=== PATIENT | male | born 1960 | race Caucasian/White ===

== ENCOUNTER 2017-08-06 11:07 | Emergency (ER) | payer OTHER ==
--- NOTE | 2017-08-06 12:00 | EDM.PDOC ---
ED HPI GENERAL MEDICAL PROBLEM - General Chief Complaint: Back Pain or Injury Stated Complaint: INJURED BACK AT WORK Time Seen by Provider: 08/06/17 11:59 Source of Information: Reports: Patient History Limitations: Reports: No Limitations - History of Present Illness INITIAL COMMENTS - FREE TEXT/NARRATIVE: Lee presents today with complaints of low back pain with radiation to right buttock after trying to lift a pellet lift out from under panels at [employer]. He denies change in bowel or bladder function and sensation. He also complains of neck pain with numbness tingling to left shoulder that has been present for several weeks. Onset: Today, Sudden Duration: Minutes: Quality: Reports: Ache, Burning Improves with: Reports: Rest Worsens with: Reports: Movement Context: Reports: Lifting right lower back Pain Score (Numeric/FACES): 7 - Related Data Allergies Allergy/AdvReac Type Severity Reaction Status Date / Time No Known Allergies Allergy Verified 08/06/17 11:43 Home Meds: Home Meds Albuterol [Ventolin HFA] 2 inh INH ASDIRECTED PRN 08/06/17 [History] Budesonide/Formoterol [Symbicort 80-4.5 MCG] 1 inh INH BID 08/06/17 [History] FLUoxetine [PROzac] 20 mg PO DAILY 08/06/17 [History] Simvastatin [Zocor] 40 mg PO BEDTIME 08/06/17 [History] Past Medical History Cardiovascular History: Reports: High Cholesterol Respiratory History: Reports: Asthma Psychiatric History: Reports: Depression - Past Surgical History Musculoskeletal Surgical History: Reports: Other (See Below) Other Musculoskeletal Surgeries/Procedures:: neck surgery Social & Family History - Tobacco Use Smoking Status *Q: Current Every Day Smoker Years of Tobacco use: 35 Packs/Tins Daily: 0.5 - Recreational Drug Use Recreational Drug Use: No ED ROS GENERAL - Review of Systems Review Of Systems: See Below Constitutional: Denies: Fever, Chills HEENT: Reports: No Symptoms Respiratory: Denies: Shortness of Breath, Wheezing, Cough, Sputum Cardiovascular: Denies: Chest Pain, Blood Pressure Problem, Dyspnea on Exertion , Edema, Lightheadedness, Palpitations, PND, Syncope Endocrine: Reports: No Symptoms GI/Abdominal: Reports: No Symptoms : Denies: Flank Pain, Frequency, Hematuria, Incontinence, Pain Musculoskeletal: Reports: Neck Pain, Muscle Stiffness, Other (Low back pain) Skin: Reports: No Symptoms Neurological: Denies: Confusion, Headache, Numbness, Paresthesia, Tingling, Difficulty Walking, Weakness, Change in Speech, Gait Disturbance Psychiatric: Reports: No Symptoms Hematologic/Lymphatic: Reports: No Symptoms Immunologic: Reports: No Symptoms ED EXAM,LOWER BACK PAIN/INJURY - Physical Exam Exam: See Below Exam Limited By: No Limitations General Appearance: Alert, WD/WN, No Apparent Distress, Moderate Distress Eye Exam: Bilateral Eye: EOMI, Normal Fundi, Normal Inspection, PERRL Ears: Normal External Exam, Normal Canal, Hearing Grossly Normal, Normal TMs Nose: Normal Inspection, Normal Mucosa, No Blood Throat/Mouth: Normal Inspection, Normal Lips, Normal Teeth, Normal Gums, Normal Oropharynx, Normal Voice Head: Atraumatic, Normocephalic Neck: Normal Inspection, Supple, Non-Tender, Full Range of Motion Respiratory/Chest: No Respiratory Distress, Lungs Clear, Normal Breath Sounds, No Accessory Muscle Use, Chest Non-Tender Cardiovascular: Normal Peripheral Pulses, Regular Rate, Rhythm, No Edema, No Gallop, No Murmur, No Rub Rectal (Males) Exam: Normal Exam Back Exam: Normal Inspection, Full Range of Motion, Decreased Range of Motion, Muscle Spasm, Other (Decreased ROM noted to right leg, positive straight leg raise. ). No: CVA Tenderness (R), CVA Tenderness (L), Paraspinal Tenderness, Vertebral Tenderness Extremities: Normal Inspection, Normal Range of Motion, Non-Tender, No Pedal Edema, Normal Capillary Refill Neurological: Alert, Normal Mood/Affect, Normal Dorsiflexion, CN II-XII Intact, Normal Plantar Flexion, Normal Reflexes, No Motor/Sensory Deficits, Oriented x 3 DTR - Lower Extremities: 2+: Knee (R), Knee (L) Psychiatric: Normal Affect, Normal Mood Skin Exam: Warm, Dry, Intact, Normal Color, No Rash Lymphatic: No Adenopathy Course - Vital Signs Last Recorded V/S: Last Vital Signs Temp 36 C 08/06/17 11:46 Pulse 81 08/06/17 11:46 Resp 12 08/06/17 11:46 BP 121/70 08/06/17 11:46 Pulse Ox 96 08/06/17 11:46 - Orders/Labs/Meds Meds: Medications Discontinued Medications Generic Name Dose Route Start Last Admin Trade Name Freq PRN Reason Stop Dose Admin Ketorolac Tromethamine 60 mg 08/06/17 12:14 08/06/17 12:27 Toradol IM 08/06/17 12:15 60 mg ONETIME ONE Administration - Radiology Interpretation Free Text/Narrative:: X-rays reviewed, wet read, no acute findings. Departure - Departure Time of Disposition: 13:16 Disposition: Home, Self-Care 01 Condition: Good Clinical Impression: Lumbar back sprain - Discharge Information Instructions: Back Injury Prevention, [id number], Muscle Strain, [id number] , Back Pain, Adult, [id number] Referrals: PCP,None [Primary Care Provider] - Forms: ED Department Discharge Additional Instructions: You have suffered from a lumbar back sprain. Take ibuprofen 800mg by mouth three times a day with for for pain. You can also take acetaminophen 1000mg by mouth three times a day as needed for pain. Take cyclobenzaprine 10mg by mouth up to three times as needed for muscle relaxant Apply diclofenac gel as directed for pain as well as use of lidocaine patch for pain as needed. Establish care with a primary provider and see them within 3 to 7 days. Follow up with primary care provider for return to work function and ability, further need for pain management and any physical therapy referral. Return for worsening, issues or concerns. - Assessment/Plan Assessment:: lumbar strain Plan: You have suffered from a lumbar back sprain. Take ibuprofen 800mg by mouth three times a day with for for pain. You can also take acetaminophen 1000mg by mouth three times a day as needed for pain. Take cyclobenzaprine 10mg by mouth up to three times as needed for muscle relaxant Apply diclofenac gel as directed for pain as well as use of lidocaine patch for pain as needed. Establish care with a primary provider and see them within 3 to 7 days. Follow up with primary care provider for return to work function and ability, further need for pain management and any physical therapy referral. Return for worsening, issues or concerns.
[2017-08-06] MEDS ORDERED: Ketorolac 60 MG/2 ML SDV IM ONE (12:14)
--- NOTE | 2017-08-06 12:51 | CR ---
Fusion at C6-7. It is intact. Solid bony fusion at C4-5. No fracture.
--- NOTE | 2017-08-06 12:57 | CR ---
5 lumbar type vertebral bodies. Vertebral body heights are maintained. Disc height loss is mild-moder ate L5-S1. Facet arthropathy most notably L5-S1.
== END 2017-08-06 13:37 | disposition home or self-care (01) ==
LOC: JP.ED 11:07
DX: S33.5XXA Sprain of ligaments of lumbar spine, initial encounter (principal); J45.909 Unspecified asthma, uncomplicated; E78.00 Pure hypercholesterolemia, unspecified; F17.210 Nicotine dependence, cigarettes, uncomplicated; Z79.899 Other long term (current) drug therapy; X50.1XXA Overexertion from prolonged static or awkward postures, initial encounter; Y99.0 Civilian activity done for income or pay
CPT/HCPCS: 72050; 72100; 96372; 99001; 99283; J1885

== ENCOUNTER 2020-08-10 07:02 | Day surgery (SDC) | payer OTHER ==
[~2020-08-10 07:02] MED LIST: Lidocaine 1% with EPINEPHrine 1:100,000 50 ML MDV ONE
[2020-08-10] MEDS ORDERED: fentaNYL 100 MCG/2 ML SDV ONE (07:39)
[2020-08-10] MEDS ORDERED: Midazolam 1 MG/ML 2 ML SDV ONE (07:39)
[2020-08-10] MEDS ORDERED: Propofol 200 MG/20 ML SDV ONE (07:39)
[2020-08-10] MEDS ORDERED: Dextrose 5%-Lactated Ringers 1,000 ML IV SCH (07:45)
[2020-08-10] MEDS ORDERED: Glycopyrrolate 0.2 MG/ML 2 ML SDV IVPUSH ONE (08:15)
--- NOTE | 2020-08-15 11:46 | OR ---
DATE OF PROCEDURE: 08/10/2020 SURGEON: Shyam Kraus MD PREOPERATIVE DIAGNOSIS: Recent history of abdominal pain and diarrhea (diarrhea now absent for several days). POSTOPERATIVE DIAGNOSES: 1. Recent history of abdominal pain and diarrhea (diarrhea now absent for several days). 2. Very minimal duodenitis. 3. Three small (probably hyperplastic) polyps in distal sigmoid colon. OPERATIVE PROCEDURES: 1. Esophagogastroduodenoscopy with antral biopsies for CLOtest (09995). 2. Flexible colonoscopy with: a. Collection of stool for microbiologic workup (76099). b. Polypectomy x3 using standard technique (04066). ANESTHESIA: IV sedation. INDICATION FOR PROCEDURE: A 59-year-old male presenting with history of some upper and mid abdominal pain. Up until recently, he had some frequent loose bowel movements or diarrhea, but now for over a week has not had any of those. The plan is to proceed with an upper and lower endoscopy for diagnostic purposes. Potential risks including bleeding and perforation were discussed and the patient wishes to proceed. DETAILS OF PROCEDURE: The patient was taken to the operating room and placed in a left lateral decubitus position. IV sedation was administered after which the upper GI endoscope was passed orally through the length of the esophagus, into the stomach with retroflexion view of the fundus, thereafter through the pyloric channel and into the junction of the 3rd and 4th portions of the duodenum. The hypopharynx, larynx, upper esophageal sphincter, and esophageal body were all unremarkable. No significant hiatal hernia or inflammation of the esophagogastric junction was identified. There was no upward extension of the gastroesophageal junction mucosal line. Within the stomach, there was a small amount of retained bile with no significant inflammation. Within the duodenum, there was some very minimal patchy redness present, but no other pathology beyond that level. The scope was then withdrawn, biopsy obtained from the antrum and sent for CLOtest for H. pylori. Minimal bleeding from the biopsy sites was seen and the procedure then concluded. Attention was then taken to the colonoscopy. The initial digital rectal exam was unremarkable. The colonoscope was then passed into the rectum with retroflexion revealing uncomplicated hemorrhoidal columns. The scope was then eventually passed to the level of the cecum. The prep was fairly good with only a small amount of liquid stool present. To that level, the patient was noted to have a series of small probable hyperplastic polyps within the distal sigmoid colon and upper rectum. These were removed by snare technique and all sent as a single specimen within a container. At that point, no further problems were noted and the scope withdrawn, and the procedure then concluded. We will await the pathology report, call the patient regarding the timing of the next colonoscopy. If these are adenomatous polyps, then he should have another colonoscopy in roughly 3 years. If these are hyperplastic polyps, the number would indicate recommendation for a repeat colonoscopy in 5 years. Shyam Kraus MD /[id number]
== END 2020-08-10 10:29 | disposition home or self-care (01) ==
LOC: JP.SDS 07:02
PROVIDERS: ATTEND Surgery
DX: Z12.11 Encounter for screening for malignant neoplasm of colon (principal); K63.5 Polyp of colon; R19.7 Diarrhea, unspecified; K31.89 Other diseases of stomach and duodenum; K29.80 Duodenitis without bleeding; B96.81 Helicobacter pylori [H. pylori] as the cause of diseases classified elsewhere; J44.9 Chronic obstructive pulmonary disease, unspecified; F17.210 Nicotine dependence, cigarettes, uncomplicated; E66.9 Obesity, unspecified; F41.9 Anxiety disorder, unspecified; F32.9 Major depressive disorder, single episode, unspecified; Z68.27 Body mass index [BMI] 27.0-27.9, adult
CPT/HCPCS: 43239; 45385; 87046; 87081; 87177; 87209; 87493; 87899; 89055; J2250; J2704; J3010; J3490; J7121; 88305

== ENCOUNTER 2021-09-26 17:19 | Emergency (ER) | payer OTHER ==
--- NOTE | 2021-09-26 17:39 | EDM.PDOC ---
<DanettemontseRomario Kelechi - Last Filed: 09/26/21 17:48> ED HPI GENERAL MEDICAL PROBLEM - General Chief Complaint: Chest Pain Stated Complaint: ANXIETY AND CHEST/LOWER BACK PAIN Time Seen by Provider: 09/26/21 17:37 Source of Information: Reports: Patient, Family, Old Records, RN History Limitations: Reports: No Limitations - History of Present Illness INITIAL COMMENTS - FREE TEXT/NARRATIVE: 60 yo male presents with a few days of rapid HR and today a flushing feeling in his chest that comes and goes(does not have it now). He drinks fairly heavily and has drank more recently. He smokes at least a ppd for most of his adult life. He has asthma, but his breathing is pretty much at his baseline. He is concerned about a possible recent Covid exposure. He is here with his of 21 yrs. He has been retired for almost 2 yrs. He had some recent ankle edema, but not now. Onset: Gradual (began with just rapid HR) Onset Date: 09/22/21 Duration: Day(s):, Getting Worse Location: Reports: Chest Quality: Reports: Other (flush) Severity: Moderate (when he has it) Improves with: Reports: Other (unsure) Worsens with: Reports: Other (unsure) Context: Reports: Other (See HPI) Associated Symptoms: Reports: Chest Pain (flushing). Denies: Cough, Diaphoresis, Fever/Chills, Nausea/Vomiting, Shortness of Breath Treatments HEAD OF MATHEMATICS: Reports: Other (see below) (none) - Related Data Allergies Allergy/AdvReac Type Severity Reaction Status Date / Time No Known Allergies Allergy Verified 09/26/21 17:33 Home Meds: Home Meds Albuterol [Ventolin HFA] 1 - 2 puff INH Q4H PRN 08/06/17 [History] Budesonide/Formoterol [Symbicort 80-4.5 MCG] 1 inh INH BID 08/06/17 [History] FLUoxetine [PROzac] 20 mg PO DAILY 08/06/17 [History] atorvaSTATin [Lipitor] 80 mg PO BEDTIME 02/04/20 [History] Pantoprazole [ProTONIX] 40 mg PO DAILY #14 tab.cr 09/26/21 [Rx] Past Medical History HEENT History: Reports: Impaired Vision, Other (See Below) Other HEENT History: wears glasses Respiratory History: Reports: Asthma, Bronchitis, Recurrent, Sleep Apnea Psychiatric History: Reports: Depression - Infectious Disease History Infectious Disease History: Reports: Chicken Pox, Shingles - Past Surgical History GI Surgical History: Reports: Colonoscopy Neurological Surgical History: Reports: C-Spine, Discectomy, Lumbar Spine, Spinal Fusion Social & Family History - Tobacco Use Tobacco Use Status *Q: Heavy Tobacco User Years of Tobacco use: 42 Packs/Tins Daily: 1.5 - Caffeine Use Caffeine Use: Reports: Soda - Alcohol Use Days Per Week of Alcohol Use: 3 Number of Drinks Per Day: 5 Total Drinks Per Week: 15 - Recreational Drug Use Recreational Drug Use: No ED ROS GENERAL - Review of Systems Review Of Systems: See Below Constitutional: Reports: No Symptoms HEENT: Reports: No Symptoms Respiratory: Reports: Wheezing (not more than usual) Cardiovascular: Reports: Chest Pain (intermittent chest "flushing") GI/Abdominal: Reports: No Symptoms : Reports: No Symptoms Musculoskeletal: Reports: No Symptoms Skin: Reports: No Symptoms Neurological: Reports: No Symptoms ED EXAM, GENERAL - Physical Exam Exam: See Below Exam Limited By: No Limitations General Appearance: Alert, WD/WN, No Apparent Distress Eye Exam: Bilateral Eye: Normal Inspection Ears: Normal External Exam, Normal Canal, Hearing Grossly Normal Ear Exam: Bilateral Ear: Auricle Normal, Canal Normal Nose: Normal Inspection, No Blood Throat/Mouth: Normal Inspection, Normal Lips, Normal Oropharynx, Normal Voice, No Airway Compromise Head: Atraumatic, Normocephalic Neck: Normal Inspection Respiratory/Chest: No Respiratory Distress, No Accessory Muscle Use, Chest Non- Tender, Decreased Breath Sounds (slightly decreased), Rales (rare), Wheezing (faint). No: Lungs Clear, Normal Breath Sounds, Rhonchi Cardiovascular: Regular Rate, Rhythm, No Edema, Tachycardia GI/Abdominal: Normal Bowel Sounds, Soft, Non-Tender, No Distention. No: Distended, Tender Back Exam: Normal Inspection. No: CVA Tenderness (R), CVA Tenderness (L) Extremities: Normal Inspection, Normal Range of Motion, Non-Tender, No Pedal Edema. No: Pedal Edema, Spring's Sign Neurological: Alert, Oriented, CN II-XII Intact, Normal Cognition, No Motor/Sensory Deficits Psychiatric: Normal Affect, Normal Mood Skin Exam: Warm, Dry, Intact, Normal Color, No Rash #1 Interpretation EKG Date: 09/26/21 Time: 17:30 Rhythm: NSR Rate (Beats/Min): 114 [place]: Normal P-Wave: Present QRS: Other (non-specific interventricular conduction delay.) ST-T: Normal QT: Normal Comparison: NA - No Prior EKG Departure - Departure Disposition: Home, Self-Care 01 Clinical Impression: Gastroesophageal reflux disease with esophagitis Qualifiers: Esophagitis bleeding: without hemorrhage Qualified Code(s): K21.00 - Gastro- esophageal reflux disease with esophagitis, without bleeding Instructions: Gastroesophageal Reflux Disease, Adult, [id number] Referrals: PCP,None [Primary Care Provider] - Forms: ED Department Discharge Care Plan Goals: Your work-up is shown that you did have a previous pulmonary emboli to the right lower lobe, but no evidence for new pulmonary embolism. It does not look like this previous embolism was anytime recent. Your symptoms are most likely consistent with a gastroesophageal reflux disease causing esophageal spasm. For this reason we are going to put you on pantoprazole 1 tablet daily for the next 14 days to heal the stomach and esophagus. Alcohol can be a major stimulus for reflux symptoms so I would recommend monitoring your intake. Sepsis Event Note (ED) - Evaluation Sepsis Screening Result: No Definite Risk <Deandre Brenner - Last Filed: 09/26/21 21:44> Course - Vital Signs Last Recorded V/S: Last Vital Signs Temp 36.4 C 09/26/21 17:31 Pulse 109 H 09/26/21 19:39 Resp 20 09/26/21 19:39 BP 156/92 H 09/26/21 19:39 Pulse Ox 90 L 09/26/21 19:39 - Orders/Labs/Meds Orders: Active Orders 24 hr Category Date Time Status Cardiac Monitoring [RC] .As Directed Care 09/26/21 17:37 Active Iopamidol [Isovue-370 (76%)] Med 09/26/21 19:45 Active 100 ml IV . DIRECTED Sodium Chloride 0.9% [Normal Saline] 100 ml Med 09/26/21 19:45 Active IV ASDIRECTED Sodium Chloride 0.9% [Saline Flush] Med 09/26/21 17:42 Active 10 ml FLUSH ASDIRECTED PRN Saline Lock Insert [OM.PC] Routine Oth 09/26/21 17:42 Ordered EKG 12 Lead [EK] Routine Ther 09/26/21 17:36 Ordered Medication Orders Sodium Chloride (Normal Saline) 100 mls @ 3 mls/sec IV ASDIRECTED BRIAN Last Admin: 09/26/21 20:07 Dose: 3 mls/sec Documented by: RADHA Iopamidol (Iopamidol 755 Mg/Ml 100 Ml Bottle) 100 ml IV . DIRECTED BRIAN Last Admin: 09/26/21 20:07 Dose: 100 ml Documented by: RADHA Sodium Chloride (Sodium Chloride 0.9% 10 Ml Syringe) 10 ml FLUSH ASDIRECTED PRN PRN Reason: Keep Vein Open Last Admin: 09/26/21 20:07 Dose: 10 ml Documented by: Admin: 09/26/21 18:02 Dose: 10 ml Documented by: RICHARD Labs: Laboratory Tests 09/26/21 09/26/21 09/26/21 Range/Units 17:53 17:55 17:55 WBC 12.2 H Cancelled (4.5-11.0) K/uL RBC 4.60 Cancelled (4.30-5.90) M/uL Hgb 14.6 Cancelled (12.0-15.0) g/dL Hct 42.6 Cancelled (40.0-54.0) % MCV 93 Cancelled (80-98) fL MCH 32 H Cancelled (27-31) pg MCHC 34 Cancelled (32-36) % Plt Count 341 Cancelled (150-400) K/uL Neut % (Auto) 70.0 H (36-66) % Lymph % (Auto) 19.9 L (24-44) % [place] % (Auto) 8.8 H (2-6) % Eos % (Auto) 0.8 L (2-4) % Baso % (Auto) 0.5 (0-1) % D-Dimer, Quantitative (0.0-500.0) ng/mL Sodium (140-148) mmol/L Potassium (3.6-5.2) mmol/L Chloride (100-108) mmol/L Carbon Dioxide (21-32) mmol/L Anion Gap (5.0-14.0) mmol/L BUN (7-18) mg/dL Creatinine (0.8-1.3) mg/dL Est Cr Clr Drug Dosing mL/min Estimated GFR (MDRD) (>60) Glucose (74-106) mg/dL Calcium (8.5-10.1) mg/dL Total Bilirubin (0.2-1.0) mg/dL AST (15-37) U/L ALT (12-78) U/L Alkaline Phosphatase (46-116) U/L Troponin I < 0.017 (0.000-0.056) ng/mL Total Protein (6.4-8.2) g/dL Albumin (3.4-5.0) g/dL Globulin (2.3-3.5) g/dL Albumin/Globulin Ratio (1.2-2.2) TSH, Ultra Sensitive 1.770 (0.358-3.740) uIU/mL Influenza Type A RNA (NEGATIVE) RSV RNA (INAAT) (NEGATIVE) Influenza Type B RNA (NEGATIVE) SARS-CoV-2 RNA (CLARE) (NEGATIVE) 09/26/21 09/26/21 09/26/21 Range/Units 17:55 17:55 19:15 WBC (4.5-11.0) K/uL RBC (4.30-5.90) M/uL Hgb (12.0-15.0) g/dL Hct (40.0-54.0) % MCV (80-98) fL MCH (27-31) pg MCHC (32-36) % Plt Count (150-400) K/uL Neut % (Auto) (36-66) % Lymph % (Auto) (24-44) % [place] % (Auto) (2-6) % Eos % (Auto) (2-4) % Baso % (Auto) (0-1) % D-Dimer, Quantitative 796.57 H (0.0-500.0) ng/mL Sodium 139 L (140-148) mmol/L Potassium 3.7 (3.6-5.2) mmol/L Chloride 100 (100-108) mmol/L Carbon Dioxide 28 (21-32) mmol/L Anion Gap 14.7 H (5.0-14.0) mmol/L BUN 17 (7-18) mg/dL Creatinine 1.0 (0.8-1.3) mg/dL Est Cr Clr Drug Dosing 81.58 mL/min Estimated GFR (MDRD) > 60 (>60) Glucose 87 (74-106) mg/dL Calcium 8.5 (8.5-10.1) mg/dL Total Bilirubin 0.6 (0.2-1.0) mg/dL AST 29 (15-37) U/L ALT 28 (12-78) U/L Alkaline Phosphatase 102 (46-116) U/L Troponin I (0.000-0.056) ng/mL Total Protein 6.7 (6.4-8.2) g/dL Albumin 3.7 (3.4-5.0) g/dL Globulin 3.0 (2.3-3.5) g/dL Albumin/Globulin Ratio 1.2 (1.2-2.2) TSH, Ultra Sensitive (0.358-3.740) uIU/mL Influenza Type A RNA Negative (NEGATIVE) RSV RNA (INAAT) Negative (NEGATIVE) Influenza Type B RNA Negative (NEGATIVE) SARS-CoV-2 RNA (CLARE) Negative (NEGATIVE) Meds: Medications Generic Name Dose Route Start Last Admin Trade Name Freq PRN Reason Stop Dose Admin Sodium Chloride 100 mls @ 3 mls/sec 09/26/21 19:45 09/26/21 20:07 Normal Saline IV 3 mls/sec ASDIRECTED BRIAN Administration Iopamidol 100 ml 09/26/21 19:45 09/26/21 20:07 Iopamidol 755 Mg/Ml 100 Ml Bottle IV 100 ml . DIRECTED BRIAN Administration Sodium Chloride 10 ml 09/26/21 17:42 09/26/21 20:07 Sodium Chloride 0.9% 10 Ml Syringe FLUSH 10 ml ASDIRECTED PRN Administration Keep Vein Open - Re-Assessments/Exams Free Text/Narrative Re-Assessment/Exam: 09/26/21 18:00 [Dr. Brenner] I am assuming care of the patient from Dr. Erickson at 1800 hrs. At this time we are awaiting the results of his labs. The patient is a 60-year-old who is presenting to the ED with central chest pain. 09/26/21 19:30 the patient's labs have returned showing a mild elevation in his leukocyte count at 12.6. Unfortunately there is no differential that was done. He has a hemoglobin of 14.6 with a hematocrit of 43.2 and a platelet count of 330,000. His basic metabolic profile is unremarkable. His D-dimer comes back significantly elevated at 796.5, his troponin is less than 0.017 and his TSH is normal at 1.77. The elevated D-dimer, we waited for the Covid test return which was negative for Covid, RSV, and influenza a and B. We will proceed with a CT angiogram of the chest to rule out a pulmonary emboli. 09/26/21 21:40 I reviewed the images of the CT chest angiogram as well as the report. The report is as follows: FINDINGS: Heart and vasculature: No cardiomegaly, no pericardial effusion. Atherosclerotic coronary artery calcifications. No evidence of acute pulmonary embolus. 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 Lungs and pleura: Moderate emphysematous changes. Residual peribronchial nodularity in the superior segment of the right lower lobe, likely chronic scarring from prior infectious/inflammatory etiology. Stable cystic change with focal scarring in the left upper lobe. No evidence of pulmonary infarct. Thyroid and lower neck: No suspicious thyroid nodule. Mediastinum/mc: No lymphadenopathy. Chest wall: No axillary lymphadenopathy. Upper abdomen: No acute abnormality. Bones: Multilevel degenerative changes of the spine. No suspicious/aggressive focal osseous lesion. IMPRESSION: 1. No evidence of acute pulmonary embolus. 2. 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 3. Moderate emphysematous changes, with multifocal scarring as above. No evidence of pulmonary infarct. Please note that all CT scans at this facility use dose modulation, iterative reconstruction, and/or weight-based dosing when appropriate to reduce radiation dose to as low as reasonably achievable. Dictated by Carmelita Olivo MD @ 09/26/2021 9:38:14 PM The symptoms are likely due to gastroesophageal reflux causing esophageal spasm. We will put the patient on a 2-week course of pantoprazole. This was a printed out prescription he can fill in the morning. Indications return to the ED were discussed he was discharged in satisfactory condition. Departure - Departure Time of Disposition: 21:41 Sepsis Event Note (ED) - Focused Exam Vital Signs: Vital Signs Temp Pulse Resp BP Pulse Ox 09/26/21 19:39 109 H 20 156/92 H 90 L 09/26/21 17:31 36.4 C 114 H 13 168/95 H 94 L - Problem List & Annotations (1) Gastroesophageal reflux disease with esophagitis SNOMED Code(s): 130791219 Code(s): K21.00 - GASTRO-ESOPHAGEAL REFLUX DIS WITH ESOPHAGITIS, WITHOUT BLEED Status: Acute Priority: High Current Visit: Yes Qualifiers: Esophagitis bleeding: without hemorrhage Qualified Code(s): K21.00 - Gastro-esophageal reflux disease with esophagitis, without bleeding - Problem List Review Problem List Initiated/Reviewed/Updated: Yes - My Orders Last 24 Hours: My Active Orders 09/26/21 19:45 Iopamidol [Isovue-370 (76%)] 100 ml IV . DIRECTED Sodium Chloride 0.9% [Normal Saline] 100 ml IV ASDIRECTED - Assessment/Plan Last 24 Hours: My Active Orders 09/26/21 19:45 Iopamidol [Isovue-370 (76%)] 100 ml IV . DIRECTED Sodium Chloride 0.9% [Normal Saline] 100 ml IV ASDIRECTED
[2021-09-26] MEDS: Sodium Chloride 0.9% 10 ML Syringe FLUSH PRN ×2 (18:02→20:07)
[2021-09-26] MEDS ORDERED: Sodium Chloride 0.9% 100 ML IV SCH (19:45)
[2021-09-26] MEDS ORDERED: Iopamidol 755 Mg/ML 100 ML Bottle IV SCH (19:45)
[2021-09-26 19:56] LABS: CORONAVIRUS COVID-19 NAA NEGATIVE (NEGATIVE)
--- NOTE | 2021-09-26 21:39 | CRLCT ---
For Patients: As a result of the Century Cures Act, medical imaging exams and procedure reports are released immediately into your electronic medical record. You may view this report before your referring provider. If you have questions, please contact your health care provider. INDICATION: Chest pain. Elevated D-dimer. TECHNIQUE: CT chest PE was acquired with 100 cc Isovue 370 IV contrast. COMPARISON: CT chest dated 04/10/2019, 01/29/2019. FINDINGS: Heart and vasculature: No cardiomegaly, no pericardial effusion. Atherosclerotic coronary artery calcifications. No evidence of acute pulmonary embolus. 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 Lungs and pleura: Moderate emphysematous changes. Residual peribronchial nodularity in the superior segment of the right lower lobe, likely chronic scarring from prior infectious/inflammatory etiology. Stable cystic change with focal scarring in the left upper lobe. No evidence of pulmonary infarct. Thyroid and lower neck: No suspicious thyroid nodule. Mediastinum/mc: No lymphadenopathy. Chest wall: No axillary lymphadenopathy. Upper abdomen: No acute abnormality. Bones: Multilevel degenerative changes of the spine. No suspicious/aggressive focal osseous lesion. IMPRESSION: 1. No evidence of acute pulmonary embolus. 2. 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 3. Moderate emphysematous changes, with multifocal scarring as above. No evidence of pulmonary infarct. Please note that all CT scans at this facility use dose modulation, iterative reconstruction, and/or weight-based dosing when appropriate to reduce radiation dose to as low as reasonably achievable. Dictated by Carmelita Olivo MD @ 09/26/2021 9:38:14 PM (Electronically Signed)
== END 2021-09-26 21:53 | disposition home or self-care (01) ==
LOC: JP.ED 17:19
DX: K21.00 Gastro-esophageal reflux disease with esophagitis, without bleeding (principal); Z79.899 Other long term (current) drug therapy; Z72.0 Tobacco use; Z20.822 Contact with and (suspected) exposure to COVID-19
CPT/HCPCS: 0241U; 36415; 71275; 80053; 84443; 84484; 85025; 85379; 93005; 99285-25; Q9967

== ENCOUNTER 2024-02-12 08:34 | Inpatient (IN) | payer MEDICARE, BC ==
[2024-02-12] MEDS: Sodium Chloride 0.9% 1,000 ML IV ONE (09:29)
[2024-02-12 09:32] LABS: BICARBONATE,VENOUS 29.5 mmol/L; CARBOXYHEMOGLOBIN 5.4 % (0.0-1.6); O2 SATURATION VENOUS 86.4; OXYHEMOGLOBIN 80.9 %; PH,VENOUS 7.397 (7.350-7.450)
[2024-02-12 09:34] LABS: BASOPHILS ABSOLUTE AUTO 0.03 K/uL (0.00-0.10); BASOPHILS PERCENT AUTO 0.2 % (0.1-1.3); EOSINOPHILS ABSOLUTE AUTO 0.07 K/uL (0.00-0.40); EOSINOPHILS PERCENT AUTO 0.5 % (0.0-5.4); HEMATOCRIT 45.6 % (38.4-49.7); HEMOGLOBIN 15.5 g/dL (12.9-16.9); IMMATURE GRAN ABSOLUTE AUTO 0.05 K/uL (0.00-0.23); IMMATURE GRAN PERCENT AUTO 0.4 % (0.0-0.7); LYMPHOCYTES ABSOLUTE AUTO 1.25 K/uL (0.8-3.3); LYMPHOCYTES PERCENT AUTO 8.8 % (11.4-47.7); MEAN CORPUSCULAR HEMOGLOBIN 31.1 pg (31.6-35.5); MEAN CORPUSCULAR VOLUME 91.4 fL (81.4-99.0); MONOCYTES ABSOLUTE AUTO 1.46 K/uL (0.20-0.90); MONOCYTES PERCENT AUTO 10.3 % (3.3-12.6); NEUTROPHILS ABSOLUTE AUTO 11.31 K/uL (1.0-7.6); NEUTROPHILS PERCENT AUTO 79.8 % (40.0-78.1); PLATELET COUNT,PLT 205 K/uL (130-375); RED BLOOD CELL COUNT 4.99 M/uL (4.14-5.76); WHITE BLOOD CELL COUNT,WBC 14.2 K/uL (3.2-11.0)
[2024-02-12 09:48] LABS: CORONAVIRUS COVID-19 NAA NEGATIVE (NEGATIVE); INFLUENZA A NAA NEGATIVE (NEGATIVE); INFLUENZA B NAA NEGATIVE (NEGATIVE); RESPIRATORY SYNCYTIAL VIR NAA POSITIVE (NEGATIVE)
[2024-02-12] MEDS: Albuterol/Ipratropium 3.0-0.5 MG/3 ML Neb Soln NEB ONE (09:55)
[2024-02-12 10:06] LABS: ALANINE AMINOTRANSFERASE,ALT 29 U/L (12-78); ALBUMIN 3.3 g/dL (3.4-5.0); ALKALINE PHOSPHATASE 106 U/L (46-116); ASPARTATE AMNIOTRANSFERASE,AST 32 U/L (15-37); BILIRUBIN TOTAL 1.1 mg/dL (0.2-1.0); BLOOD UREA NITROGEN,BUN 15 mg/dL (7-18); CALCIUM 8.7 mg/dL (8.5-10.1); CARBON DIOXIDE,CO2 29 mmol/L (21-32); CHLORIDE,CL 97 mmol/L (100-108); CREATININE 1.1 mg/dL (0.8-1.3); EST CRCL DRUG DOSING (CG) 70.76 mL/min; ESTIMATED GFR 75 mL/min (>60); GLUCOSE RANDOM 119 mg/dL (74-106); POTASSIUM,K 4.4 mmol/L (3.6-5.2); PRO B-TYPE NATRIUR PEPT,BNPPRO 318 pg/mL (5-125); PROTEIN TOTAL,TP 7.2 g/dL (6.4-8.2); SODIUM,NA 134 mmol/L (140-148)
[2024-02-12 10:09] LABS: A/G RATIO 0.9 (1.2-2.2); ANION GAP 12.4 mmol/L (5.0-14.0)
[2024-02-12] MEDS: Sodium Chloride 0.9% 10 ML Syringe FLUSH ONE (10:35)
[2024-02-12] MEDS: Sodium Chloride 0.9% 100 ML IV SCH (10:35)
[2024-02-12] MEDS: Iopamidol 755 Mg/ML 100 ML Bottle IV SCH (10:35)
[2024-02-12] MEDS: cefTRIAXone 1 GM in Sodium Chloride 0.9% 50 ML IV ONE (11:54)
[2024-02-12] MEDS ORDERED: Ondansetron 4 MG Tab.DIS PO PRN (14:10)
[2024-02-12] MEDS ORDERED: Albuterol 0.083% 2.5 MG/3 ML Neb Soln NEB PRN (14:10)
[2024-02-12] MEDS ORDERED: Acetaminophen 325 MG Tab PO PRN (14:10)
[2024-02-12] MEDS ORDERED: Benzonatate 100 MG Cap PO PRN (14:10)
[2024-02-12] MEDS ORDERED: Cyclobenzaprine 10 MG Tab PO PRN (14:10)
[2024-02-12] MEDS ORDERED: Ondansetron 4 MG/2 ML SDV IV PRN (14:10)
[2024-02-12] MEDS ORDERED: Sennosides/Docusate Sodium 50-8.6 MG Tab PO PRN (14:10)
[2024-02-12] MEDS ORDERED: Codeine/guaiFENesin 10-100 MG/5 ML Syrup 5 ML Cup PO PRN (14:10)
[2024-02-12] MEDS ORDERED: Magnesium Hydroxide 400 MG/5 ML Susp 30 ML Cup PO PRN (14:10)
[2024-02-12] MEDS: Albuterol/Ipratropium 3.0-0.5 MG/3 ML Neb Soln NEB SCH (15:01)
[2024-02-12] MEDS: methylPREDNISolone Sodium Succinate 125 MG/2 ML SDV IVPUSH ONE (15:41)
[2024-02-12] MEDS: Doxycycline 100 MG Cap PO SCH (15:43)
[2024-02-12 18:41] LABS: APPEARANCE,URINE CLEAR (CLEAR); BILIRUBIN,URINE NEGATIVE (NEGATIVE); COLOR,URINE YELLOW (YELLOW); GLUCOSE,URINE NEGATIVE (NEGATIVE); KETONES,URINE NEGATIVE (NEGATIVE); LEUKOCYTE ESTERASE,URINE NEGATIVE (NEGATIVE); NITRITE,URINE NEGATIVE (NEGATIVE); OCCULT BLOOD,URINE NEGATIVE (NEGATIVE); PH,URINE 5.5 (5.0-8.0); PROTEIN,URINE 30 mg/dL (NEGATIVE); UROBILINOGEN,URINE 0.2 EU/dL (0.2-1.0)
[2024-02-12 18:46] LABS: AMORPHOUS SEDIMENT,URINE NOT SEEN; BACTERIA,URINE FEW; EPITHELIAL CELLS,URINE RARE; MUCUS,URINE FEW; RBC,URINE NOT SEEN (0-5); WBC,URINE 0-5 (0-5)
[2024-02-12] MEDS: Lactobacillus Rhamnosus GG (Probiotic) Cap PO SCH (20:23)
[2024-02-12] MEDS: atorvaSTATin 20 MG Tab PO SCH (20:23)
[2024-02-12] MEDS: Formoterol/Mometasone 100-5 MCG 8.8 GM Inhaler IH SCH (20:23)
[2024-02-12] MEDS: methylPREDNISolone Sodium Succinate 125 MG/2 ML SDV IVPUSH SCH (20:24)
[2024-02-12] MEDS: cefTRIAXone 2 GM in Sodium Chloride 0.9% 50 ML IV SCH (23:35)
[2024-02-13 06:12] LABS: HEMATOCRIT 43.8 % (38.4-49.7); HEMOGLOBIN 14.6 g/dL (12.9-16.9); MEAN CORPUSCULAR HEMOGLOBIN 30.9 pg (31.6-35.5); MEAN CORPUSCULAR HGB CONC 33.3 g/dL (31.6-35.5); MEAN CORPUSCULAR VOLUME 92.8 fL (81.4-99.0); RED BLOOD CELL COUNT 4.72 M/uL (4.14-5.76)
[2024-02-13 06:26] LABS: CALCIUM 8.7 mg/dL (8.5-10.1); CREATININE 1.1 mg/dL (0.8-1.3); EST CRCL DRUG DOSING (CG) 71.01 mL/min; POTASSIUM,K 4.9 mmol/L (3.6-5.2)
[2024-02-13 06:33] LABS: ANION GAP 10.9 mmol/L (5.0-14.0)
[2024-02-13] MEDS: Gabapentin 100 MG Cap PO SCH (08:36)
[2024-02-13] MEDS: predniSONE 20 MG Tab PO SCH (08:37)
[2024-02-13] MEDS ORDERED: FLUoxetine 20 MG Cap PO SCH (09:00)
[2024-02-13] MEDS: Calcium Carbonate 500 MG Tab.Chew PO PRN (18:35)
[2024-02-13] MEDS: FLUoxetine 20 MG Cap PO SCH (21:19)
== END 2024-02-14 10:28 | disposition home or self-care (01) | DRG 193 ==
LOC: JP.ED 08:34 → JP.MS 13:46
PROVIDERS: ADMIT Internal Medicine; ATTEND Internal Medicine
PROC: 4A033R1 Measurement of Arterial Saturation, Peripheral, Percutaneous Approach (ICD-10-PCS; principal; 2024-02-12)
DX: R09.02 Hypoxemia (principal); B97.4 Respiratory syncytial virus as the cause of diseases classified elsewhere; J44.9 Chronic obstructive pulmonary disease, unspecified; J12.1 Respiratory syncytial virus pneumonia; J96.01 Acute respiratory failure with hypoxia; J44.0 Chronic obstructive pulmonary disease with (acute) lower respiratory infection; J44.1 Chronic obstructive pulmonary disease with (acute) exacerbation; G47.30 Sleep apnea, unspecified; F32.A Depression, unspecified; F17.210 Nicotine dependence, cigarettes, uncomplicated; Z86.718 Personal history of other venous thrombosis and embolism; Z79.51 Long term (current) use of inhaled steroids; Z79.899 Other long term (current) drug therapy; Z98.1 Arthrodesis status; Z98.890 Other specified postprocedural states
CPT/HCPCS: 0241U; 36415; 71046; 71275; 80048; 80053; 81001; 82803; 83605; 83735; 83880; 84145; 84484; 85025; 85027; 85379; 86140; 87040; 87070; 87205; 94640; 96361; 96365; 99222; 99232; 99238; 99285; A9270-GY; J0696; J1040; J2930; J3490; J7030; J7512; J7620; Q9967

== ENCOUNTER 2024-03-06 08:26 | Day surgery (SDC) | payer MEDICARE, BC ==
[2024-03-06] MEDS: Sodium Chloride 0.9% 10 ML Syringe FLUSH PRN (08:58)
== END 2024-03-06 10:14 | disposition home or self-care (01) ==
LOC: JP.SDS 08:26
PROVIDERS: ATTEND Ophthalmology
DX: H25.12 Age-related nuclear cataract, left eye (principal); K21.00 Gastro-esophageal reflux disease with esophagitis, without bleeding; J44.1 Chronic obstructive pulmonary disease with (acute) exacerbation; J96.01 Acute respiratory failure with hypoxia; Z79.899 Other long term (current) drug therapy
CPT/HCPCS: 66984; J3490; V2632

== ENCOUNTER 2024-03-20 07:43 | Day surgery (SDC) | payer MEDICARE, BC ==
[2024-03-20] MEDS: Sodium Chloride 0.9% 10 ML Syringe FLUSH PRN (08:14)
== END 2024-03-20 09:20 | disposition home or self-care (01) ==
LOC: JP.SDS 07:43
PROVIDERS: ATTEND Ophthalmology
DX: H26.9 Unspecified cataract (principal); J44.9 Chronic obstructive pulmonary disease, unspecified
CPT/HCPCS: 66984; J3490; V2632

== ENCOUNTER 2024-07-21 19:02 | Inpatient (IN) | payer MEDICARE, BC ==
[2024-07-21 19:52] LABS: BASOPHILS ABSOLUTE AUTO 0.04 K/uL (0.00-0.10); BASOPHILS PERCENT AUTO 0.4 % (0.1-1.3); EOSINOPHILS ABSOLUTE AUTO 0.29 K/uL (0.00-0.40); EOSINOPHILS PERCENT AUTO 3.2 % (0.0-5.4); HEMATOCRIT 45.7 % (38.4-49.7); HEMOGLOBIN 15.4 g/dL (12.9-16.9); IMMATURE GRAN ABSOLUTE AUTO 0.03 K/uL (0.00-0.23); IMMATURE GRAN PERCENT AUTO 0.3 % (0.0-0.7); LYMPHOCYTES ABSOLUTE AUTO 2.35 K/uL (0.8-3.3); LYMPHOCYTES PERCENT AUTO 25.6 % (11.4-47.7); MEAN CORPUSCULAR HEMOGLOBIN 30.9 pg (31.6-35.5); MEAN CORPUSCULAR HGB CONC 33.7 g/dL (31.6-35.5); MEAN CORPUSCULAR VOLUME 91.8 fL (81.4-99.0); MONOCYTES ABSOLUTE AUTO 0.87 K/uL (0.20-0.90); MONOCYTES PERCENT AUTO 9.5 % (3.3-12.6); PLATELET COUNT,PLT 246 K/uL (130-375); RED BLOOD CELL COUNT 4.98 M/uL (4.14-5.76); WHITE BLOOD CELL COUNT,WBC 9.2 K/uL (3.2-11.0)
[2024-07-21] MEDS: Albuterol 0.083% 2.5 MG/3 ML Neb Soln NEB ONE (20:10)
[2024-07-21 20:14] LABS: CALCIUM IONIZED,ISTAT 1.13 mmol/L (1.12-1.32); HCO3 ARTERIAL,ISTAT 28.2 mmol/L (22.0-26.0); HEMATOCRIT,ISTAT 45 % (36-48); PCO2 ARTERIAL,ISTAT 39.3 mmHG (35-45); PH ARTERIAL,ISTAT 7.47 (7.35-7.45); PO2 ARTERIAL,ISTAT 156 mmHg (80-105); POTASSIUM,ISTAT 3.7 mmol/L (3.5-4.9); SODIUM,ISTAT 133 mmol/L (140-148); TCO2 ARTERIAL,ISTAT 29 mmol/L (23-27)
[2024-07-21 20:15] LABS: BASE EXCESS ARTERIAL,ISTAT 4 mmol/L (-2-3); O2 SATURATION ARTERIAL,ISTAT 99 % (95-98)
[2024-07-21] MEDS: Sodium Chloride 0.9% 10 ML Syringe FLUSH PRN (20:15)
[2024-07-21] MEDS: methylPREDNISolone Sodium Succinate 125 MG/2 ML SDV IVPUSH ONE (20:20)
[2024-07-21 20:23] LABS: ALANINE AMINOTRANSFERASE,ALT 24 U/L (12-78); ALBUMIN 3.4 g/dL (3.4-5.0); ALKALINE PHOSPHATASE 97 U/L (46-116); ASPARTATE AMNIOTRANSFERASE,AST 16 U/L (15-37); BILIRUBIN TOTAL 0.5 mg/dL (0.2-1.0); BLOOD UREA NITROGEN,BUN 11 mg/dL (7-18); CALCIUM 9.4 mg/dL (8.5-10.1); CARBON DIOXIDE,CO2 35 mmol/L (21-32); CHLORIDE,CL 101 mmol/L (100-108); CREATININE 1.1 mg/dL (0.8-1.3); EST CRCL DRUG DOSING (CG) 71.31 mL/min; ESTIMATED GFR 75 mL/min (>60); GLUCOSE RANDOM 122 mg/dL (74-106); POTASSIUM,K 4.2 mmol/L (3.6-5.2); PROTEIN TOTAL,TP 6.8 g/dL (6.4-8.2); SODIUM,NA 139 mmol/L (140-148)
[2024-07-21 20:25] LABS: ANION GAP 7.2 mmol/L (5.0-14.0)
[2024-07-21] MEDS: Albuterol/Ipratropium 3.0-0.5 MG/3 ML Neb Soln NEB ONE (22:09)
[2024-07-22] MEDS ORDERED: Ondansetron 4 MG/2 ML SDV IV PRN (00:08)
[2024-07-22] MEDS ORDERED: Acetaminophen 325 MG Tab PO PRN (00:08)
[2024-07-22] MEDS ORDERED: Promethazine 25 MG Tab PO PRN (00:08)
[2024-07-22] MEDS ORDERED: oxyCODONE 5 MG Tab PO PRN (00:08)
[2024-07-22] MEDS ORDERED: Ondansetron 4 MG Tab.DIS PO PRN (00:08)
[2024-07-22] MEDS ORDERED: Prochlorperazine 10 MG/2 ML SDV IV PRN (00:08)
[2024-07-22] MEDS: Iopamidol 755 Mg/ML 100 ML Bottle IV STA (00:50)
[2024-07-22] MEDS: Sodium Chloride 0.9% 100 ML IV STA (00:51)
[2024-07-22] MEDS: Doxycycline 100 MG Cap PO SCH (01:38)
[2024-07-22] MEDS: atorvaSTATin 20 MG Tab PO ONE (01:39)
[2024-07-22] MEDS: Albuterol/Ipratropium 3.0-0.5 MG/3 ML Neb Soln NEB SCH (05:14)
[2024-07-22] MEDS: Budesonide 0.5 MG/2 ML Neb Susp NEB SCH (05:15)
[2024-07-22 05:24] LABS: BASOPHILS PERCENT AUTO 0.2 % (0.1-1.3); HEMATOCRIT 46.5 % (38.4-49.7); IMMATURE GRAN PERCENT AUTO 0.3 % (0.0-0.7); LYMPHOCYTES ABSOLUTE AUTO 0.54 K/uL (0.8-3.3); LYMPHOCYTES PERCENT AUTO 9.3 % (11.4-47.7); MEAN CORPUSCULAR HEMOGLOBIN 31.4 pg (31.6-35.5); MEAN CORPUSCULAR HGB CONC 34.4 g/dL (31.6-35.5); MEAN CORPUSCULAR VOLUME 91.2 fL (81.4-99.0); MONOCYTES ABSOLUTE AUTO 0.03 K/uL (0.20-0.90); MONOCYTES PERCENT AUTO 0.5 % (3.3-12.6); NEUTROPHILS ABSOLUTE AUTO 5.18 K/uL (1.0-7.6); NEUTROPHILS PERCENT AUTO 89.7 % (40.0-78.1); PLATELET COUNT,PLT 240 K/uL (130-375); WHITE BLOOD CELL COUNT,WBC 5.8 K/uL (3.2-11.0)
[2024-07-22 05:38] LABS: INR 1.1; PROTHROMBIN TIME 10.8 sec (9.2-10.6); PTT,PARTIAL THROMBOPLSTIN TIME 26.1 sec (21.8-27.3)
[2024-07-22 05:46] LABS: A/G RATIO 0.9 (1.2-2.2); ALANINE AMINOTRANSFERASE,ALT 20 U/L (12-78); ALBUMIN 3.4 g/dL (3.4-5.0); ALKALINE PHOSPHATASE 100 U/L (46-116); ASPARTATE AMNIOTRANSFERASE,AST 14 U/L (15-37); BILIRUBIN TOTAL 0.5 mg/dL (0.2-1.0); BLOOD UREA NITROGEN,BUN 11 mg/dL (7-18); CALCIUM 9.3 mg/dL (8.5-10.1); CARBON DIOXIDE,CO2 29 mmol/L (21-32); CHLORIDE,CL 99 mmol/L (100-108); CREATININE 1.2 mg/dL (0.8-1.3); ESTIMATED GFR 67 mL/min (>60); GLUCOSE RANDOM 209 mg/dL (74-106); POTASSIUM,K 4.4 mmol/L (3.6-5.2); PROTEIN TOTAL,TP 7.1 g/dL (6.4-8.2); SODIUM,NA 135 mmol/L (140-148)
[2024-07-22 05:47] LABS: ANION GAP 11.4 mmol/L (5.0-14.0)
[2024-07-22 06:01] LABS: BASOPHILS ABSOLUTE AUTO 0.01 K/uL (0.00-0.10); IMMATURE GRAN ABSOLUTE AUTO 0.02 K/uL (0.00-0.23)
[2024-07-22 06:05] LABS: CORONAVIRUS COVID-19 NAA NEGATIVE (NEGATIVE); INFLUENZA A NAA NEGATIVE (NEGATIVE); INFLUENZA B NAA NEGATIVE (NEGATIVE); RESPIRATORY SYNCYTIAL VIR NAA NEGATIVE (NEGATIVE)
[2024-07-22] MEDS: predniSONE 20 MG Tab PO SCH (07:18)
[2024-07-22] MEDS: Enoxaparin 40 MG/0.4 ML Syringe SUBCUT SCH (08:17)
[2024-07-22 08:42] LABS: C-REACTIVE PROTEIN 1.02 mg/dL (<0.50)
[2024-07-22] MEDS: FLUoxetine 10 MG Cap PO SCH (11:15)
[2024-07-22] MEDS: Formoterol/Mometasone 200-5 MCG 8.8 GM Inhaler INH SCH (12:02)
[2024-07-22] MEDS: atorvaSTATin 20 MG Tab PO SCH (20:36)
[2024-07-22] MEDS ORDERED: FLUoxetine 10 MG Cap PO SCH (21:00)
[2024-07-22] MEDS ORDERED: FLUoxetine 20 MG Cap PO SCH (21:00)
[2024-07-22] MEDS: Sodium Chloride 0.65% Nasal Spray 45 ML Bottle NAS PRN (22:02)
[2024-07-22] MEDS: Calcium Carbonate 500 MG Tab.Chew PO PRN (22:02)
== END 2024-07-23 12:35 | disposition home or self-care (01) | DRG 189 ==
LOC: JP.ED 19:02 → JP.MS 07-22 00:09
PROVIDERS: ADMIT Family Medicine; ATTEND Hospitalist
PROC: 4A033R1 Measurement of Arterial Saturation, Peripheral, Percutaneous Approach (ICD-10-PCS; principal; 2024-07-21)
DX: J96.21 Acute and chronic respiratory failure with hypoxia (principal); J44.1 Chronic obstructive pulmonary disease with (acute) exacerbation; F32.A Depression, unspecified; E78.00 Pure hypercholesterolemia, unspecified; E78.2 Mixed hyperlipidemia; E66.9 Obesity, unspecified; G47.30 Sleep apnea, unspecified; H54.7 Unspecified visual loss; G89.29 Other chronic pain; M54.2 Cervicalgia; F17.210 Nicotine dependence, cigarettes, uncomplicated; Z98.1 Arthrodesis status; Z98.49 Cataract extraction status, unspecified eye; Z99.81 Dependence on supplemental oxygen; Z86.16 Personal history of COVID-19; Z68.29 Body mass index [BMI] 29.0-29.9, adult; Z98.890 Other specified postprocedural states; Z79.899 Other long term (current) drug therapy
CPT/HCPCS: 0241U; 36415; 36600; 71045; 71275; 80053; 82803; 83880; 84145; 85025; 85379; 85610; 85730; 86140; 94640; 94667; 99232; 99238; 96374; 99284; 99285-25; A9270-GY; J1650; J2919; J3490; J7512; J7620; Q9967

== ENCOUNTER 2025-02-09 21:38 | Emergency (ER) | payer MEDICARE, BC ==
[2025-02-09 22:04] LABS: BASE EXCESS ARTERIAL 2.8 mm/L; BASOPHILS ABSOLUTE AUTO 0.07 K/uL (0.00-0.10); BASOPHILS PERCENT AUTO 0.8 % (0.1-1.3); BICARBONATE,ARTERIAL 33.4 mmol/L (22.0-26.0); CARBOXYHEMOGLOBIN 3.2 % (0.0-1.6); EOSINOPHILS ABSOLUTE AUTO 0.59 K/uL (0.00-0.40); EOSINOPHILS PERCENT AUTO 6.6 % (0.0-5.4); HEMATOCRIT 48.7 % (38.4-49.7); IMMATURE GRAN ABSOLUTE AUTO 0.03 K/uL (0.00-0.23); IMMATURE GRAN PERCENT AUTO 0.3 % (0.0-0.7); LYMPHOCYTES ABSOLUTE AUTO 1.56 K/uL (0.8-3.3); LYMPHOCYTES PERCENT AUTO 17.5 % (11.4-47.7); MEAN CORPUSCULAR HEMOGLOBIN 31.1 pg (31.6-35.5); MEAN CORPUSCULAR HGB CONC 32.9 g/dL (31.6-35.5); MEAN CORPUSCULAR VOLUME 94.7 fL (81.4-99.0); METHEMOGLOBIN 0.8 %; MONOCYTES ABSOLUTE AUTO 0.91 K/uL (0.20-0.90); MONOCYTES PERCENT AUTO 10.2 % (3.3-12.6); NEUTROPHILS ABSOLUTE AUTO 5.73 K/uL (1.0-7.6); NEUTROPHILS PERCENT AUTO 64.6 % (40.0-78.1); O2 SATURATION ARTERIAL 96.7 % (95.0-98.0); OXYHEMOGLOBIN 92.8 %; PLATELET COUNT,PLT 232 K/uL (130-375); RED BLOOD CELL COUNT 5.14 M/uL (4.14-5.76); TOTAL HEMOGLOBIN 16.1 g/dL (13.5-18.0); WHITE BLOOD CELL COUNT,WBC 8.9 K/uL (3.2-11.0)
[2025-02-09] MEDS: methylPREDNISolone Sodium Succinate 125 MG/2 ML SDV IVPUSH ONE (22:22)
[2025-02-09 22:27] LABS: A/G RATIO 1.1 (1.2-2.2); ALANINE AMINOTRANSFERASE,ALT 30 U/L (12-78); ALBUMIN 3.8 g/dL (3.4-5.0); ALKALINE PHOSPHATASE 116 U/L (46-116); ANION GAP 8.4 mmol/L (5.0-14.0); ASPARTATE AMNIOTRANSFERASE,AST 27 U/L (15-37); BILIRUBIN TOTAL 0.6 mg/dL (0.2-1.0); BLOOD UREA NITROGEN,BUN 13 mg/dL (7-18); CARBON DIOXIDE,CO2 35 mmol/L (21-32); CHLORIDE,CL 100 mmol/L (100-108); EST CRCL DRUG DOSING (CG) 75.03 mL/min; ESTIMATED GFR 83 mL/min (>60); GLUCOSE RANDOM 129 mg/dL (74-106); POTASSIUM,K 4.4 mmol/L (3.6-5.2); PROTEIN TOTAL,TP 7.3 g/dL (6.4-8.2); SODIUM,NA 139 mmol/L (140-148)
[2025-02-09] MEDS: Albuterol 0.083% 2.5 MG/3 ML Neb Soln NEB ONE ×2 (22:44→23:16)
[2025-02-09] MEDS ORDERED: Iopamidol 755 Mg/ML 100 ML Bottle IV SCH (23:00)
[2025-02-09] MEDS ORDERED: Sodium Chloride 0.9% 80 ML IV SCH (23:00)
[2025-02-09] MEDS: LORazepam 2 MG/ML SDV IVPUSH ONE (23:15)
[2025-02-09] MEDS: Sodium Chloride 0.9% 1,000 ML IV SCH (23:16)
[2025-02-09 23:45] LABS: BASE EXCESS ARTERIAL 2.8 mm/L; BICARBONATE,ARTERIAL 32.3 mmol/L (22.0-26.0); CARBOXYHEMOGLOBIN 3.2 % (0.0-1.6); METHEMOGLOBIN 0.8 %; O2 SATURATION ARTERIAL 85.4 % (95.0-98.0); PO2 ARTERIAL 56.1 mmHg (75.0-100.0); TOTAL HEMOGLOBIN 15.4 g/dL (13.5-18.0)
[2025-02-09 23:47] LABS: PCO2 ARTERIAL 73.6 mmHg (35.0-42.0)
[2025-02-10 02:52] LABS: BASE EXCESS ARTERIAL 3.3 mm/L; BICARBONATE,ARTERIAL 31.3 mmol/L (22.0-26.0); CARBOXYHEMOGLOBIN 2.8 % (0.0-1.6); METHEMOGLOBIN 0.8 %; O2 SATURATION ARTERIAL 95.2 % (95.0-98.0); OXYHEMOGLOBIN 91.8 %; PCO2 ARTERIAL 64.2 mmHg (35.0-42.0); PO2 ARTERIAL 76.2 mmHg (75.0-100.0); TOTAL HEMOGLOBIN 15.7 g/dL (13.5-18.0)
== END 2025-02-10 03:21 ==
LOC: JP.ED 21:38
DX: J44.1 Chronic obstructive pulmonary disease with (acute) exacerbation (principal); R06.03 Acute respiratory distress; E78.00 Pure hypercholesterolemia, unspecified; E66.9 Obesity, unspecified; F17.210 Nicotine dependence, cigarettes, uncomplicated; Z86.16 Personal history of COVID-19; Z79.899 Other long term (current) drug therapy; Z79.51 Long term (current) use of inhaled steroids; Z68.29 Body mass index [BMI] 29.0-29.9, adult
CPT/HCPCS: 36415; 36600; 71045; 80053; 82803; 83880; 84484; 85025; 85379; 93005; 94640; 96361; 96374; 96375; 99285; J2060; J2919; J7030; J7613; A7290-GY

== ENCOUNTER 2025-02-28 16:48 | Emergency (ER) | payer MEDICARE, BC ==
[2025-02-28] MEDS ORDERED: Sodium Chloride 0.9% 10 ML Syringe FLUSH PRN (17:48)
[2025-02-28 17:58] LABS: BASOPHILS ABSOLUTE AUTO 0.03 K/uL (0.00-0.10); BASOPHILS PERCENT AUTO 0.3 % (0.1-1.3); EOSINOPHILS ABSOLUTE AUTO 0.06 K/uL (0.00-0.40); EOSINOPHILS PERCENT AUTO 0.7 % (0.0-5.4); HEMATOCRIT 40.9 % (38.4-49.7); HEMOGLOBIN 13.7 g/dL (12.9-16.9); IMMATURE GRAN ABSOLUTE AUTO 0.05 K/uL (0.00-0.23); IMMATURE GRAN PERCENT AUTO 0.5 % (0.0-0.7); LYMPHOCYTES ABSOLUTE AUTO 1.48 K/uL (0.8-3.3); LYMPHOCYTES PERCENT AUTO 16.1 % (11.4-47.7); MEAN CORPUSCULAR HEMOGLOBIN 31.2 pg (31.6-35.5); MEAN CORPUSCULAR HGB CONC 33.5 g/dL (31.6-35.5); MEAN CORPUSCULAR VOLUME 93.2 fL (81.4-99.0); MONOCYTES ABSOLUTE AUTO 0.59 K/uL (0.20-0.90); MONOCYTES PERCENT AUTO 6.4 % (3.3-12.6); NEUTROPHILS ABSOLUTE AUTO 6.96 K/uL (1.0-7.6); PLATELET COUNT,PLT 213 K/uL (130-375); RED BLOOD CELL COUNT 4.39 M/uL (4.14-5.76); WHITE BLOOD CELL COUNT,WBC 9.2 K/uL (3.2-11.0)
[2025-02-28] MEDS: Furosemide 40 MG/4 ML VIAL IVPUSH ONE (18:25)
[2025-02-28 18:38] LABS: ALANINE AMINOTRANSFERASE,ALT 115 U/L (12-78); ALKALINE PHOSPHATASE 99 U/L (46-116); ASPARTATE AMNIOTRANSFERASE,AST 82 U/L (15-37); BILIRUBIN TOTAL 0.7 mg/dL (0.2-1.0); BLOOD UREA NITROGEN,BUN 18 mg/dL (7-18); CALCIUM 8.5 mg/dL (8.5-10.1); CARBON DIOXIDE,CO2 30 mmol/L (21-32); CHLORIDE,CL 102 mmol/L (100-108); EST CRCL DRUG DOSING (CG) 75.03 mL/min; ESTIMATED GFR 83 mL/min (>60); GLUCOSE RANDOM 119 mg/dL (74-106); POTASSIUM,K 4.5 mmol/L (3.6-5.2); PRO B-TYPE NATRIUR PEPT,BNPPRO 434 pg/mL (5-125); PROTEIN TOTAL,TP 5.9 g/dL (6.4-8.2); SODIUM,NA 139 mmol/L (140-148)
[2025-02-28 18:39] LABS: ANION GAP 11.5 mmol/L (5.0-14.0)
== END 2025-02-28 19:12 | disposition home or self-care (01) ==
LOC: JP.ED 16:48
DX: E87.70 Fluid overload, unspecified (principal); E78.00 Pure hypercholesterolemia, unspecified; E66.9 Obesity, unspecified; J44.89 Other specified chronic obstructive pulmonary disease; Z87.01 Personal history of pneumonia (recurrent); Z79.51 Long term (current) use of inhaled steroids; Z79.899 Other long term (current) drug therapy; Z86.16 Personal history of COVID-19; Z68.32 Body mass index [BMI] 32.0-32.9, adult
CPT/HCPCS: 36415; 71046; 71046-26; 80053; 83880; 84484; 85025; 85379; 86140; 93005; 93010; 96374; 99284; 99285-25; J1940

== ENCOUNTER 2025-08-24 13:16 | Emergency (ER) | payer MEDICARE, BC ==
[2025-08-24 15:10] LABS: APPEARANCE,URINE CLEAR (CLEAR); GLUCOSE,URINE NEGATIVE (NEGATIVE); OCCULT BLOOD,URINE NEGATIVE (NEGATIVE)
[2025-08-24 15:26] LABS: SQUAMOUS EPITHELIAL CELLS,UR RARE /HPF; UROTHELIAL CELLS,URINE NOT SEEN /HPF
== END 2025-08-24 16:02 | disposition home or self-care (01) ==
LOC: JP.ED 13:16
DX: J40 Bronchitis, not specified as acute or chronic (principal); J44.89 Other specified chronic obstructive pulmonary disease; E66.9 Obesity, unspecified; F17.200 Nicotine dependence, unspecified, uncomplicated; Z79.899 Other long term (current) drug therapy; Z79.82 Long term (current) use of aspirin; Z68.30 Body mass index [BMI] 30.0-30.9, adult
CPT/HCPCS: 71046; 81001; 94640; 99283; 99285; A9270